=== PATIENT | female | born 1965 ===

== ENCOUNTER → 2020-11-28 07:44 | Outpatient (CLI) | payer OTHER | END | disposition home or self-care (01) | LOC: RX STUDY 07:44 | DX: R13.14 Dysphagia, pharyngoesophageal phase (principal) ==

== ENCOUNTER 2020-12-12 09:00 | Outpatient (CLI) | payer OTHER | END 2020-12-12 09:20 | disposition home or self-care (01) | LOC: TOM 09:00 | DX: R07.89 Other chest pain (principal); D15.2 Benign neoplasm of mediastinum; T18.198A Other foreign object in esophagus causing other injury, initial encounter ==